=== PATIENT | male | born 1960 | race Caucasian/White ===

== ENCOUNTER → 2018-05-07 | Outpatient (CLI) | payer MEDICAID ==
[~2018-05-07] MED LIST: AMLODIPINE BESYL5 MG PO; AVPAK METFORMI500 MG PO; B12,B-12,B 12500 MC1 PO; HYDR25T PO; VITAMIN D-32000 UNIT PO; Zestril,Prinivi40 MG PO
== END | disposition home or self-care (01) ==
LOC: RESCLI 00:26
DX: I10 Essential (primary) hypertension (principal); E11.8 Type 2 diabetes mellitus with unspecified complications; F79 Unspecified intellectual disabilities; E66.9 Obesity, unspecified; E55.9 Vitamin D deficiency, unspecified; E53.8 Deficiency of other specified B group vitamins; E87.6 Hypokalemia; Z79.899 Other long term (current) drug therapy

== ENCOUNTER → 2018-05-22 | Outpatient (CLI) | payer MEDICAID | END | disposition home or self-care (01) | LOC: RESCLI 01:02 | DX: I10 Essential (primary) hypertension (principal); E11.9 Type 2 diabetes mellitus without complications; F79 Unspecified intellectual disabilities; E66.9 Obesity, unspecified; E55.9 Vitamin D deficiency, unspecified; E53.8 Deficiency of other specified B group vitamins; E87.6 Hypokalemia; G25.0 Essential tremor ==

== ENCOUNTER → 2018-07-31 | Outpatient (CLI) | payer MEDICAID | END | disposition home or self-care (01) | LOC: RESCLI 01:24 | DX: I10 Essential (primary) hypertension (principal); F79 Unspecified intellectual disabilities; E66.9 Obesity, unspecified; E55.9 Vitamin D deficiency, unspecified; E11.8 Type 2 diabetes mellitus with unspecified complications; G25.0 Essential tremor; Z79.84 Long term (current) use of oral hypoglycemic drugs; Z79.899 Other long term (current) drug therapy ==

== ENCOUNTER → 2018-07-31 | Outpatient (CLI) | payer MEDICAID ==
[2018-07-31 08:42] LABS: HEMATOCRIT 40.6 % (42.0-52.0); HEMOGLOBIN 13.6 g/dl (14.0-18.0); MEAN CELL VOLUME 92.9 fl (80.0-94.0); MEAN CORPUSCULAR HGB 31.1 pg (27.0-31.0); MEAN CORPUSCULAR HGB CONC 33.5 g/dl (33.0-37.0); MEAN PLATELET VOLUME 10.4 fl (9.6-12.3); RED BLOOD COUNT 4.37 10*6/uL (4.50-5.90); RED CELL DISTRI WIDTH 14.3 % (0-14.5); WHITE BLOOD COUNT 9.1 10*3/uL (4.8-10.8)
[2018-07-31 09:10] LABS: BUN 18 mg/dl (7-24); CHLORIDE 101 mmol/L (98-107); CREATININE 1.35 mg/dL (0.70-1.30); POTASSIUM 3.8 mmol/L (3.5-5.1); SODIUM 137 mmol/L (136-145)
== END | disposition home or self-care (01) ==
LOC: LAB 07:58
PROVIDERS: Internal Medicine
DX: E87.6 Hypokalemia (principal)

== ENCOUNTER → 2018-08-05 | Outpatient (CLI) | payer MEDICAID | END | disposition home or self-care (01) | LOC: RESCLI 11:42 | DX: I10 Essential (primary) hypertension (principal); F79 Unspecified intellectual disabilities; E66.9 Obesity, unspecified; E55.9 Vitamin D deficiency, unspecified; E11.8 Type 2 diabetes mellitus with unspecified complications; G25.0 Essential tremor; R00.0 Tachycardia, unspecified; Z91.19 Patient's noncompliance with other medical treatment and regimen; Z79.84 Long term (current) use of oral hypoglycemic drugs; Z79.899 Other long term (current) drug therapy; Z88.8 Allergy status to other drugs, medicaments and biological substances ==

== ENCOUNTER 2019-10-13 16:20 | Emergency (ER) | payer MEDICAID ==
[~2019-10-13] VITALS: Ht 180.3 cm; Wt 90.7 kg
[~2019-10-13 16:20] MED LIST changes: +CEPHALEXIN500 M1 PO; +COREG12.5 M1 PO; +METFORMIN ER500 MG PO; +PRIMIDONE250 MG PO; +TAB-A-VITE1 EACH PO
[2019-10-13 16:41] VITALS: BP 164/95
[2019-10-13 17:16] LABS: BASO % 0.5 % (0.0-1.0); EOS # 0.3 10*3/uL (0.0-0.4); EOS % 3.9 % (1.0-4.0); HEMATOCRIT 34.5 % (42.0-52.0); HEMOGLOBIN 11.4 g/dl (14.0-18.0); LYMPH # 1.8 10*3/uL (1.3-4.4); MEAN CELL VOLUME 98.6 fl (80.0-94.0); MEAN CORPUSCULAR HGB 32.6 pg (27.0-31.0); MEAN PLATELET VOLUME 10.1 fl (9.6-12.3); MONO # 0.8 10*3/uL (0.1-1.0); MONO % 9.2 % (3.0-9.0); NEUT # 5.5 10*3/uL (2.3-7.9); NEUT % 64.6 % (47.0-73.0); PLATELET COUNT AUTOMATED 286 10*3/uL (130-400); RED CELL DISTRI WIDTH 13.9 % (0-14.5); WHITE BLOOD COUNT 8.5 10*3/uL (4.8-10.8)
[2019-10-13 17:26] LABS: ACT PARTIAL THROMBO TIME 27.6 SECONDS (20.0-32.1); INTERNATIONAL NORM RATIO 0.9 (2.0-3.5)
[2019-10-13 17:28] LABS: BUN 20 mg/dl (7-24); CHLORIDE 106 mmol/L (98-107); CREATININE 1.17 mg/dL (0.70-1.30); POTASSIUM 3.9 mmol/L (3.5-5.1); SODIUM 140 mmol/L (136-145)
== END 2019-10-13 17:58 | disposition home or self-care (01) ==
LOC: ED 16:20
PROVIDERS: Emergency Medicine
DX: M79.89 Other specified soft tissue disorders (principal); E11.9 Type 2 diabetes mellitus without complications; I10 Essential (primary) hypertension; Z79.899 Other long term (current) drug therapy

== ENCOUNTER → 2020-02-16 | Outpatient (CLI) | payer MEDICAID | END | disposition home or self-care (01) | LOC: MRI 02-09 09:00 | DX: M76.829 Posterior tibial tendinitis, unspecified leg (principal) ==

== ENCOUNTER 2021-08-09 06:01 | Emergency (ER) | payer MEDICAID ==
[~2021-08-09] VITALS: Ht 170.2 cm; Wt 130.6 kg
[2021-08-09 06:46] LABS: BASO # 0.1 10*3/uL (0.0-0.1); BASO % 0.7 % (0.0-1.0); EOS # 0.4 10*3/uL (0.0-0.4); EOS % 4.6 % (1.0-4.0); HEMATOCRIT 37.8 % (42.0-52.0); LYMPH # 1.6 10*3/uL (1.3-4.4); LYMPH % 18.5 % (27.0-41.0); MEAN CELL VOLUME 101.9 fl (80.0-94.0); MEAN CORPUSCULAR HGB 32.6 pg (27.0-31.0); MEAN PLATELET VOLUME 11.9 fl (9.6-12.3); MONO # 0.9 10*3/uL (0.1-1.0); MONO % 10.2 % (3.0-9.0); NEUT # 5.6 10*3/uL (2.3-7.9); PLATELET COUNT AUTOMATED 230 10*3/uL (130-400); RED BLOOD COUNT 3.71 10*6/uL (4.50-5.90); RED CELL DISTRI WIDTH 15.2 % (0-14.5); WHITE BLOOD COUNT 8.7 10*3/uL (4.8-10.8)
[2021-08-09 06:59] LABS: ALBUMIN 2.8 gm/dl (3.1-4.5); ALKALINE PHOSPHATASE 75 U/L (45-117); BUN 16 mg/dl (7-24); CHLORIDE 107 mmol/L (98-107); CREATININE 1.24 mg/dL (0.70-1.30); SGOT/AST 13 IU/L (3-35); SGPT/ALT 16 U/L (12-78); SODIUM 141 mmol/L (136-145)
[2021-08-09 07:10] VITALS: BP 157/80
== END 2021-08-09 08:11 ==
LOC: ED 06:01
PROVIDERS: Emergency Medicine
DX: I10 Essential (primary) hypertension (principal)

== ENCOUNTER 2022-04-30 09:46 | Emergency (ER) | payer MEDICAID ==
[2022-04-30 10:32] LABS: BASO % 0.4 % (0.0-1.0); EOS # 0.5 10*3/uL (0.0-0.4); EOS % 5.2 % (1.0-4.0); HEMATOCRIT 40.8 % (42.0-52.0); LYMPH # 1.3 10*3/uL (1.3-4.4); LYMPH % 12.7 % (27.0-41.0); MEAN CELL VOLUME 104.1 fl (80.0-94.0); MEAN CORPUSCULAR HGB 32.4 pg (27.0-31.0); MEAN CORPUSCULAR HGB CONC 31.1 g/dl (33.0-37.0); MEAN PLATELET VOLUME 12.6 fl (9.6-12.3); MONO # 0.7 10*3/uL (0.1-1.0); MONO % 6.8 % (3.0-9.0); NEUT # 7.3 10*3/uL (2.3-7.9); NEUT % 74.4 % (47.0-73.0); PLATELET COUNT AUTOMATED 247 10*3/uL (130-400); RED BLOOD COUNT 3.92 10*6/uL (4.50-5.90); RED CELL DISTRI WIDTH 15.9 % (0-14.5); WHITE BLOOD COUNT 9.8 10*3/uL (4.8-10.8)
[2022-04-30 10:39] LABS: ACT PARTIAL THROMBO TIME 37.7 SECONDS (20.0-32.1); INTERNATIONAL NORM RATIO 1.5 (2.0-3.5)
[2022-04-30 10:42] LABS: CREATININE 3.97 mg/dL (0.70-1.30); POTASSIUM 4.4 mmol/L (3.5-5.1); TOTAL PROTEIN 7.7 gm/dL (6.4-8.2)
[2022-04-30 11:16] LABS: BILIRUBIN 2+ (Negative); BLOOD 1+ (Negative); CLARITY Cloudy (Clear); COLOR Dark Yellow (Yellow); GLUCOSE Negative (Negative); KETONE Trace (Negative); LEUKO ESTERASE Trace (Negative); NITRITE Negative (Negative)
[2022-04-30 12:21] LABS: BACTERIA 3+; CALCIUM OXALATE CRYSTALS 1+; RBC 21-30 rbc/hpf (0-2)
[2022-05-01] MEDS ORDERED: ASPIRIN ADULT L81 M2 PO (03:45)
[2022-05-01] MEDS ORDERED: PROZAC10 MG PO (03:46)
[2022-05-01] MEDS ORDERED: REMERON15 M2 PO (03:46)
[2022-05-01] MEDS ORDERED: LIPITOR10 MG PO (03:46)
[2022-05-01] MEDS ORDERED: ALDACTAZIDE 251 EACH PO (03:47)
[2022-05-01 18:28] VITALS: BP 124/85
== END 2022-05-01 19:35 | disposition short-term general hospital (02) ==
LOC: ED 09:46
PROVIDERS: Emergency Medicine
DX: N17.9 Acute kidney failure, unspecified (principal); I67.4 Hypertensive encephalopathy; E11.9 Type 2 diabetes mellitus without complications; G40.909 Epilepsy, unspecified, not intractable, without status epilepticus; Z79.899 Other long term (current) drug therapy

== ENCOUNTER 2022-05-14 08:01 | Inpatient (IN) | payer MEDICAID ==
[2022-05-14] VITALS (50 sets, daily range): BP systolic 70–149; BP diastolic 38–89
[~2022-05-14] VITALS: Ht 182.9 cm; Wt 114.8 kg
[~2022-05-14 08:01] MED LIST changes: +ALDACTAZIDE 251 EACH PO; +ASPIRIN ADULT L81 M2 PO; +LIPITOR10 MG PO; +PROZAC10 MG PO; +REMERON15 M2 PO
[2022-05-14 08:42] LABS: ABG BASE EXCESS -0.4 mmol/L (-2.0-2.0); ARTERIAL BLOOD GAS PH 7.43 (7.35-7.45); ARTERIAL BLOOD GAS PO2 444.5 (80-90)
[2022-05-14] MEDS ORDERED: ASPIRIN CHEWABL81 MG PO (10:46)
[2022-05-14] MEDS ORDERED: AMLODIPINE BESY10 MG PO (10:46)
[2022-05-14] MEDS ORDERED: CARVEDILOL12.5 MG PO (10:47)
[2022-05-14] MEDS ORDERED: ATORVASTATIN CA40 M1 PO (10:47)
[2022-05-14] MEDS ORDERED: THERA-D100 MCG PO (10:48)
[2022-05-14] MEDS ORDERED: CLONIDINE HCL0.1 MG PO (10:49)
[2022-05-14] MEDS ORDERED: Clopidogrel75 MG PO (10:49)
[2022-05-14] MEDS ORDERED: DULCOLAX10 M1 R (10:50)
[2022-05-14] MEDS ORDERED: FLEET ENEMA 13133 ML R (10:51)
[2022-05-14] MEDS ORDERED: PROZAC10 MG PO (10:51)
[2022-05-14] MEDS ORDERED: LEVALBUTER0.63 MG/4 NEB (10:52)
[2022-05-14] MEDS ORDERED: GLYBURIDE2.5 MG PO (10:52)
[2022-05-14] MEDS ORDERED: LISINOPRIL40 MG PO (10:53)
[2022-05-14] MEDS ORDERED: MILK OF MA400 MG/5 M PO (10:53)
[2022-05-14] MEDS ORDERED: MIRTAZAPINE15 M2 PO (10:54)
[2022-05-14] MEDS ORDERED: THERAGRAN-M PR1 EACH PO (10:54)
[2022-05-14] MEDS ORDERED: PRIMIDONE250 MG PO (10:55)
[2022-05-14] MEDS ORDERED: SYMB160 INH (10:56)
[2022-05-14] MEDS ORDERED: PHARMASSURE V500 MCG PO (10:56)
[2022-05-14 11:21] LABS: HEMATOCRIT 47.6 % (42.0-52.0); MEAN CELL VOLUME 107.9 fl (80.0-94.0); MEAN CORPUSCULAR HGB CONC 29.6 g/dl (33.0-37.0); MEAN PLATELET VOLUME 14.3 fl (9.6-12.3); PLATELET COUNT AUTOMATED 215 10*3/uL (130-400); RED BLOOD COUNT 4.41 10*6/uL (4.50-5.90); RED CELL DISTRI WIDTH 16.5 % (0-14.5); WHITE BLOOD COUNT 16.6 10*3/uL (4.8-10.8)
[2022-05-14 11:23] LABS: MANUAL DIFF REFLEX YES
[2022-05-14 11:40] LABS: CREATININE 5.35 mg/dL (0.70-1.30); POTASSIUM 4.4 mmol/L (3.5-5.1); TOTAL PROTEIN 8.2 gm/dL (6.4-8.2)
[2022-05-14 11:51] LABS: PLATELET SUFFICIENCY NORMAL (NORMAL); POLYCHROMASIA SLIGHT; TOTAL CELLS COUNTED 100 #CELLS
[2022-05-14 11:52] LABS: ROULEAUX SLIGHT; TOXIC GRANULATION SLIGHT; VACUOLATION OF NEUTROPHILS SLIGHT
[2022-05-14 14:02] LABS: ACT PARTIAL THROMBO TIME 48.4 SECONDS (20.0-32.1)
[2022-05-14 14:16] LABS: INTERNATIONAL NORM RATIO 6.3 (2.0-3.5)
[2022-05-14 16:45] LABS: ABG BASE EXCESS -3.7 mmol/L (-2.0-2.0); ARTERIAL BLOOD GAS PH 7.335 (7.35-7.45); ARTERIAL BLOOD GAS PO2 128.9 (80-90)
[2022-05-14 16:51] LABS: HEMATOCRIT 44.2 % (42.0-52.0); MEAN CELL VOLUME 109.7 fl (80.0-94.0); MEAN CORPUSCULAR HGB 32.5 pg (27.0-31.0); MEAN CORPUSCULAR HGB CONC 29.6 g/dl (33.0-37.0); MEAN PLATELET VOLUME 14.7 fl (9.6-12.3); NUCLEATED RED BLOOD CELL 0.2 % (0.0-0.0); PLATELET COUNT AUTOMATED 189 10*3/uL (130-400); RED BLOOD COUNT 4.03 10*6/uL (4.50-5.90); RED CELL DISTRI WIDTH 16.6 % (0-14.5); WHITE BLOOD COUNT 17.6 10*3/uL (4.8-10.8)
[2022-05-14 16:56] LABS: CREATININE 5.29 mg/dL (0.70-1.30); POTASSIUM 3.7 mmol/L (3.5-5.1); TOTAL PROTEIN 7.3 gm/dL (6.4-8.2)
[2022-05-14 17:05] LABS: INTERNATIONAL NORM RATIO 6.5 (2.0-3.5)
[2022-05-14 17:15] LABS: MANUAL DIFF REFLEX YES
[2022-05-14 17:19] LABS: PLATELET SUFFICIENCY NORMAL (NORMAL); TOTAL CELLS COUNTED 100 #CELLS
[2022-05-14 18:09] LABS: ACT PARTIAL THROMBO TIME 47.1 SECONDS (20.0-32.1)
[2022-05-15] VITALS (74 sets, daily range): BP systolic 87–145; BP diastolic 55–103
[2022-05-15 04:18] LABS: BILIRUBIN 1+ (Negative); BLOOD 3+ (Negative); CLARITY Turbid (Clear); COLOR Orange (Yellow); GLUCOSE 1+ (Negative); KETONE Trace (Negative); LEUKO ESTERASE 1+ (Negative); NITRITE Negative (Negative); PH 6.5 (4.5-8.0); SPECIFIC GRAVITY >= 1.030 (1.001-1.030); UROBILINOGEN 0.2 E.U./dl (0.0-1.0)
[2022-05-15 04:38] LABS: BACTERIA 3+; RBC TNTC rbc/hpf (0-2); WBC 16-20 wbc/hpf (0-5)
[2022-05-15 04:50] LABS: CREATININE 5.97 mg/dL (0.70-1.30); POTASSIUM 3.6 mmol/L (3.5-5.1); TOTAL PROTEIN 6.7 gm/dL (6.4-8.2)
[2022-05-15 04:59] LABS: THYROID STIM HORMONE (HS) 1.14 uIU/ml (0.358-4.75)
[2022-05-15 06:25] LABS: HEMATOCRIT 38.9 % (42.0-52.0); MEAN CELL VOLUME 109.9 fl (80.0-94.0); MEAN CORPUSCULAR HGB 33.3 pg (27.0-31.0); MEAN CORPUSCULAR HGB CONC 30.3 g/dl (33.0-37.0); NUCLEATED RED BLOOD CELL 0.2 % (0.0-0.0); PLATELET COUNT AUTOMATED 151 10*3/uL (130-400); RED BLOOD COUNT 3.54 10*6/uL (4.50-5.90); RED CELL DISTRI WIDTH 16.9 % (0-14.5); WHITE BLOOD COUNT 19.4 10*3/uL (4.8-10.8)
[2022-05-15 06:27] LABS: MANUAL DIFF REFLEX YES
[2022-05-15 07:06] LABS: ACT PARTIAL THROMBO TIME 37.1 SECONDS (20.0-32.1); INTERNATIONAL NORM RATIO 1.3 (2.0-3.5)
[2022-05-15 07:16] LABS: BURR CELLS FEW; PLATELET SUFFICIENCY NORMAL (NORMAL); TOTAL CELLS COUNTED 100 #CELLS
[2022-05-15 07:17] LABS: POLYCHROMASIA SLIGHT
== END 2022-05-15 20:39 | disposition short-term general hospital (02) | DRG 720 ==
LOC: ED 08:01 → EDHOLD 14:48 → ICCU 14:48
PROVIDERS: Internal Medicine; Nurse Practitioner Adult Health; Student in an Organized Health Care Education/Training Program; ADMIT Internal Medicine; ATTEND Internal Medicine
PROC: 5A09357 Assistance with Respiratory Ventilation, Less than 24 Consecutive Hours, Continuous Positive Airway Pressure (ICD-10-PCS; principal; 2022-05-14)
PROC: 5A1945Z Respiratory Ventilation, 24-96 Consecutive Hours (ICD-10-PCS; 2022-05-14)
PROC: 0BH17EZ Insertion of Endotracheal Airway into Trachea, Via Natural or Artificial Opening (ICD-10-PCS; 2022-05-14)
PROC: 02HV33Z Insertion of Infusion Device into Superior Vena Cava, Percutaneous Approach (ICD-10-PCS; 2022-05-14)
PROC: B548ZZA Ultrasonography of Superior Vena Cava, Guidance (ICD-10-PCS; 2022-05-14)
DX: A41.9 Sepsis, unspecified organism (principal); R65.21 Severe sepsis with septic shock; J96.01 Acute respiratory failure with hypoxia; I21.4 Non-ST elevation (NSTEMI) myocardial infarction; E43 Unspecified severe protein-calorie malnutrition; N17.0 Acute kidney failure with tubular necrosis; D53.9 Nutritional anemia, unspecified; E87.0 Hyperosmolality and hypernatremia; Z20.822 Contact with and (suspected) exposure to COVID-19; I10 Essential (primary) hypertension; Z66 Do not resuscitate; E66.9 Obesity, unspecified; E87.8 Other disorders of electrolyte and fluid balance, not elsewhere classified; E11.65 Type 2 diabetes mellitus with hyperglycemia; R74.01 Elevation of levels of liver transaminase levels; L89.159 Pressure ulcer of sacral region, unspecified stage; A04.72 Enterocolitis due to Clostridium difficile, not specified as recurrent; I25.2 Old myocardial infarction; Z51.5 Encounter for palliative care; Z84.1 Family history of disorders of kidney and ureter; Z68.34 Body mass index [BMI] 34.0-34.9, adult

== ENCOUNTER 2022-06-14 11:48 | Emergency (ER) | payer MEDICAID ==
[~2022-06-14] VITALS: Wt 127.0 kg
[~2022-06-14 11:48] MED LIST changes: +AMLODIPINE BESY10 MG PO; +ASPIRIN CHEWABL81 MG PO; +ATORVASTATIN CA40 M1 PO; +CARVEDILOL12.5 MG PO; +CLONIDINE HCL0.1 MG PO; +Clopidogrel75 MG PO; +DULCOLAX10 M1 R; +FLEET ENEMA 13133 ML R; +GLYBURIDE2.5 MG PO; +LEVALBUTER0.63 MG/4 NEB; +LISINOPRIL40 MG PO; +MILK OF MA400 MG/5 M PO; +MIRTAZAPINE15 M2 PO; +PHARMASSURE V500 MCG PO; +SYMB160 INH; +THERA-D100 MCG PO; +THERAGRAN-M PR1 EACH PO
[2022-06-14 12:44] LABS: ABG BASE EXCESS 2.3 mmol/L (-2.0-2.0); ARTERIAL BLOOD GAS PH 7.337 (7.35-7.45); ARTERIAL BLOOD GAS PO2 125.2 (80-90)
[2022-06-14 13:56] LABS: CREATININE 2.44 mg/dL (0.70-1.30); POTASSIUM 5.7 mmol/L (3.5-5.1); TOTAL PROTEIN 6.3 gm/dL (6.4-8.2)
[2022-06-15 03:59] VITALS: BP 86/45; BP 88/48; BP 96/50
[2022-06-15 04:49] VITALS: BP 86/46; BP 89/48
[2022-06-15 21:12] VITALS: BP 0/0
== END 2022-06-16 01:04 ==
LOC: ED 11:48
PROVIDERS: Emergency Medicine
DX: J96.90 Respiratory failure, unspecified, unspecified whether with hypoxia or hypercapnia (principal); R00.0 Tachycardia, unspecified; Z79.82 Long term (current) use of aspirin; Z79.899 Other long term (current) drug therapy